=== PATIENT | male | born 1975 | race African-American/Black ===

== ENCOUNTER 2017-08-17 16:18 | Inpatient (IN) | payer SELFPAY ==
[2017-08-17 16:37] LABS: Bilirubin Moderate (Negative); Blood, Urine Small (Negative); Glucose, Urine (Dipstick) Negative (Negative); Ketone, Urine Trace mg/dL (Negative); Nitrite Positive (Negative); Protein, Urine (Dipstick) 100 mg/dL (Neg-Trace); Urobilinogen > or = 8.0 mg/dL (0.2-1.0)
[2017-08-17 16:38] LABS: Bacteria/HPF None Seen HPF (None Seen); Hyaline Casts/LPF 4-6 HYALINE CAST LPF (0-3 Hyaline); Squamous Epithelial 0-3 HPF (0-3)
[2017-08-17 16:47] LABS: Hematocrit 45.9 % (42.0-52.0); Mean Platelet Volume 7.8 fL (7.4-10.4); Red Blood Cell (RBC) Count 5.16 mill/uL (4.70-6.10); White Blood Cell (WBC) Count 14.5 thou/uL (4.8-10.8)
[2017-08-17] MEDS ORDERED: Ondansetron HCl/PF 4 MG/2 ML Vial ONE (17:00)
[2017-08-17] MEDS ORDERED: Azithromycin 500 MG VIAL ONE (17:00)
[2017-08-17 17:04] LABS: Band 2 % (5-11); Neutrophil 81 % (42-75)
[2017-08-17 17:08] LABS: Lactic Acid - Sepsis 2.7 mmol/L (0.5-2.2)
[2017-08-17] MEDS ORDERED: Acetaminophen 500 MG TAB ONE (17:11)
[2017-08-17] MEDS ORDERED: Ibuprofen 800 MG TAB ONE (17:11)
[2017-08-17 17:12] LABS: ALT (SGPT) 91 U/L (8-55); AST (SGOT) 57 U/L (5-34); Alkaline Phosphatase 148 U/L (40-150); Anion Gap 16 mmol/L (10-20); BUN (Urea Nitrogen) 8 mg/dL (8.9-20.6); Bilirubin, Total 1.3 mg/dL (0.2-1.2); Calc. Creatinine Clearance 0 mL/min (70-130); Carbon Dioxide 21 mmol/L (22-29); Chloride 97 mmol/L (98-107); Estimated GFR-MDRD 73; Globulin 4.2 g/dL (2.4-3.5); Protein, Total 8.4 g/dL (6.0-8.3)
--- NOTE | 2017-08-17 18:12 | RAD ---
PA AND LATERAL VIEWS CHEST: 08/17/17 HISTORY: Cough. FINDINGS: The heart size is normal. The lungs are expanded with patchy consolidation in the lingula. No pneumo thoraces or pleural effusions are seen. IMPRESSION: Left lung pneumonia. POS: [facility]
[2017-08-17] MEDS ORDERED: cefTRIAXone\\ROCEPHIN 1 GM VIAL ONE (18:31)
[2017-08-17] MEDS ORDERED: Sodium Chloride 0.9% 100 ML ONE (18:31)
[2017-08-17] MEDS ORDERED: Morphine Sulfate 2 MG/ML SYRINGE ONE (18:31)
[2017-08-17] MEDS ORDERED: HYDROcodone/Acetaminophen 5/325 mg Tablet PO PRN ×2 (23:05)
[2017-08-17] MEDS ORDERED: Acetaminophen 325 MG TAB PO PRN (23:05)
[2017-08-17] MEDS ORDERED: Ondansetron ODT 4 MG TAB SL PRN (23:05)
[2017-08-17] MEDS ORDERED: Ondansetron HCl/PF 4 MG/2 ML Vial IVP PRN (23:05)
[2017-08-17] MEDS ORDERED: Dextrose 5 %-0.45 % NaCl 1,000 ML IV SCH (23:15)
--- NOTE | 2017-08-17 23:23 | PDOC.EVN ---
Event Note - Event Note Event Note: [id number] h&p dictated 1. Sepsis 2. Pneumonia 3. UTI PLAN: SEE ORDERS
[2017-08-18 01:23] LABS: LegU Control Bar Appear? YES (CONTROL BAR); LegionellaU Control Bkground? CLEAR/WHITE (CLR/WHITE); Strp pneuU Control Background? CLEAR/WHITE (CLR/WHITE); Strp pneumo Control Bar Appear YES (CONTROL BAR)
[2017-08-18 05:31] LABS: #Eosinphils 0.2 thou/uL (0.0-0.7); #Lymphocytes 1.3 thou/uL (1.20-3.40); #Monocytes 1.5 thou/uL (0.11-0.59); #Neutrophils 8.7 thou/uL (1.40-6.50); %Basophils 0.3 % (0.0-1.0); %Eosinophils 1.5 % (0.0-10.0); %Lymphocytes 11.3 % (21.0-51.0); %Monocytes 12.7 % (0.0-10.0); Hematocrit 42.9 % (42.0-52.0); Mean Platelet Volume 8.1 fL (7.4-10.4); Red Blood Cell (RBC) Count 4.74 mill/uL (4.70-6.10); White Blood Cell (WBC) Count 11.8 thou/uL (4.8-10.8)
[2017-08-18 05:51] LABS: Anion Gap 7 mmol/L (10-20); BUN (Urea Nitrogen) 9 mg/dL (8.9-20.6); Calc. Creatinine Clearance 122 mL/min (70-130); Calcium 8.9 mg/dL (7.8-10.44); Carbon Dioxide 30 mmol/L (22-29); Chloride 102 mmol/L (98-107); Estimated GFR-MDRD Greater than 90
--- NOTE | 2017-08-18 06:32 | HP ---
DATE OF ADMISSION: 08/17/2017 CHIEF COMPLAINT: Cough, fever. HISTORY OF PRESENT ILLNESS: Patient is a 41-year-old man with no significant past medical history, now came to the ER complaining of cough, fever. The patient started having cough 2 days back with some sputum production, sputum white in color. Complains of also fever and chills, also fever up to 103. Patient started having diffuse body aches. Complains of some chest congestion also. Denies any nausea, denies any vomiting, denies any abdominal pain. Complains of diarrhea 1-2 times for the last 2 days. Denies any recent travel. Patient did get exposed to sick contacts. PAST MEDICAL HISTORY: None. PAST SURGICAL HISTORY: Appendectomy. SOCIAL HISTORY: Positive for smoking, denies alcohol, denies any drugs. FAMILY HISTORY: Positive for heart problems. REVIEW OF SYSTEMS: Constitutional: Positive for body aches. Eyes: Positive for fever and chills. Eyes: Denies any vision problems. Ears: Denies any hearing loss. Neck: Denies any neck pain. Cardiovascular: Denies any chest pain. Respiratory: Positive for dyspnea, cough, and sputum production. Gastrointestinal: Positive for diarrhea. Cranial nerve system: Denies syncope , denies dizziness. Psychiatric: Denies anxiety. Integumentary: Denies any rash. Musculoskeletal: Denies any joint deformities. All other review of systems are reviewed and are negative. PHYSICAL EXAMINATION: CONSTITUTIONAL/VITAL SIGNS: At the time of H\T\P performed, blood pressure is 100/40, pulse 78, respiratory rate 18, pulse ox 97% on room air. GENERAL: The patient appears comfortable. HEENT: Pupils equal, round, and reactive. Anterior nares patent. Nose normal. Ears normal. Teeth intact. Tongue is moist. NECK: Supple, no JVD. CARDIOVASCULAR SYSTEM: S1, S2 present. Regular rate and rhythm, no murmurs, no rubs, no gallops. RESPIRATORY SYSTEM: Left side, diminished breath sounds present. Positive for crackles. No rhonchi, no wheezing. No . GASTROINTESTINAL: Abdomen is soft, nontender, no guarding, no organomegaly, no masses felt. INTEGUMENT: No rashes seen. PSYCHIATRIC: Mood is appropriate at this time. LABORATORY DATA: At this time of H\T\P performed, sodium 131, potassium 3.2, chloride 97, CO2 of 21, BUN of 8, creatinine 1.31. AST 57, ALT 91, albumin 4.2. Lactic acid 2.7, repeat one is 0.7. White count of 14.5, hemoglobin 15.6 , platelet count is 239. Chest x-ray, possible left lingular infiltrate. ASSESSMENT AND PLAN: The patient is a 41-year-old man. 1. Sepsis secondary to pneumonia: will start broad spectrum antibiotics. Plan to admit the patient to telemetry floor. We will monitor patient closely. 2. Pneumonia. Start IV antibiotics. Plan to send urine for culture, strep pneumonia + legionella urinary antigen. Plan to check CT chest to evaluate the infiltrate. 3. Urinary tract infection. Plan to send urine for culture and sensitivity. Continue IV antibiotics. 4. Pain, p.r.n. pain medications. The case was discussed in detail with the patient. The patient is FULL CODE. MTDD
--- NOTE | 2017-08-18 08:05 | CT ---
PRELIMINARY REPORT/[facility]/EMERGENCY AFTER HOURS PROCEDURE: EXAM: CT Chest Without Intravenous Contrast CLINICAL HISTORY: 41 years old, male; Signs and symptoms; Other: R/O infiltrate TECHNIQUE: Axial computed tomography images of the chest without intravenous contrast. Coronal reformatted images were created and reviewed. COMPARISON: No relevant prior studies available. FINDINGS: Lungs: Left upper lobe consolidation with air bronchograms. Pleural space: No acute findings. No pneumothorax. No significant effusion. Heart: No acute findings. No cardiomegaly. No significant pericardial effusion. Bones/joints: No acute fracture. Soft tissues: No acute findings. Vasculature: No acute findings. No thoracic aortic aneurysm. Lymph nodes: Prominent mediastinal lymph nodes could be reactive. IMPRESSION: Left upper lobe consolidation may represent pneumonia; recommend clinical correlation and followup t o ensure resolution. Thank you for allowing us to participate in the care of your patient. Dictated and Authenticated by: Julien Meza MD 08/18/2017 12:36 AM Central Time ([place] \T\ [place]) FINAL REPORT EMERGENT AFTER HOURS CT THORAX WITHOUT IV CONTRAST: DATE: 08/18/17. HISTORY: Flu-like symptoms for several days. Cough. Symptoms worse today. IMPRESSION: 1. Consolidation in the left upper lobe likely attributable to pneumonia. Followup to complete res olution is recommended. 2. The right lung is clear. 3. Findings are in agreement with the preliminary report by [facility]. POS: [facility]
[2017-08-18] MEDS ORDERED: Heparin 5,000 UNITS/ML VIAL SC SCH (09:00)
[2017-08-18] MEDS: Acetaminophen 325 MG TAB PO PRN ×2 (09:57→21:57)
--- NOTE | 2017-08-18 10:20 | PDOC.PN ---
- Subjective Encounter Start Date: 08/18/17 Encounter Start Time: 07:20 Pt seen for followup re; sepsis. denies chest pain, shortness of breath, fevers or chills. No nausea or vomiting. Cough+, sputum+. - Objective MAR Reviewed: Yes Vital Signs & Weight: Vital Signs (12 hours) Temp Pulse Resp BP Pulse Ox 08/18/17 08:36 99.4 F 85 18 120/80 100 08/18/17 04:26 99.3 F 78 22 H 115/74 99 08/18/17 04:20 99 08/17/17 23:45 97.7 F 66 18 97 08/17/17 23:05 97.7 F 66 18 112/75 97 Weight Weight 196 lb 3.2 oz I&O: 08/17/17 08/18/17 08/19/17 06:59 06:59 06:59 Intake Total 966.1 Output Total 375 Balance 591.1 Result Diagrams: 08/18/17 04:25 08/18/17 04:25 Radiology Reviewed by me: Yes (CT chest: JESSICA consolidation) EKG Reviewed by me: Yes (Tele: NSR) Phys Exam - Physical Examination Constitutional: NAD HEENT: moist MMs, sclera anicteric Neck: supple, full ROM Respiratory: no wheezing, no rales, no rhonchi JESSICA bronchial breathing Cardiovascular: RRR, no significant murmur, no rub Gastrointestinal: soft, non-tender, no distention, positive bowel sounds Musculoskeletal: no edema, pulses present Neurological: non-focal, moves all 4 limbs Lymphatic: no nodes Psychiatric: normal affect, A&O x 3 Skin: no rash, normal turgor, cap refill <2 seconds Dx/Plan (1) Sepsis Code(s): A41.9 - SEPSIS, UNSPECIFIED ORGANISM Status: Acute (2) Pneumonia Code(s): J18.9 - PNEUMONIA, UNSPECIFIED ORGANISM Status: Acute (3) UTI (urinary tract infection) Status: Acute (4) Hypokalemia Code(s): E87.6 - HYPOKALEMIA Status: Acute - Plan continue antibiotics, out of bed/ambulate, DVT proph w/lovenox * . Continue IV ceftriaxone, IV levofloxacin. Await blood and urine cultures. Replace potassium. Transfer to medical floor. Review of Systems - Review of Systems Constitutional: Chills. negative: Fever, Sweats, Weakness, Malaise Respiratory: Cough, SOB with Excertion, Sputum. negative: Dry, Shortness of Breath, Hemoptysis, Pleuritic Pain, Wheezing Cardiovascular: negative: Chest Pain, Palpitations, Orthopnea, Paroxysmal Noc. Dyspnea, Edema, Light Headedness Gastrointestinal: negative: Nausea, Vomiting, Abdominal Pain, Diarrhea, Constipation, Melena, Hematochezia Genitourinary: negative: Dysuria, Frequency, Incontinence, Hematuria, Retention - Medications/Allergies Allergies/Adverse Reactions: Allergies Allergy/AdvReac Type Severity Reaction Status Date / Time No Known Drug Allergies Allergy Verified 08/17/17 23:24 Medications: Current Medications Acetaminophen (Tylenol) 650 mg PO Q6H PRN PRN Reason: Headache/Fever or Pain Last Admin: 08/18/17 09:57 Dose: 650 mg Heparin Sodium (Porcine) (Heparin) 5,000 units SC TID [place] Last Admin: 08/18/17 08:41 Dose: 5,000 units Levofloxacin 750 mg/ Device 150 mls @ 100 mls/hr IVPB Q24HR [place] Last Admin: 08/18/17 00:43 Dose: 150 mls Ceftriaxone Sodium 1 gm/ (Sodium Chloride) 100 mls @ 200 mls/hr IVPB Q24HR [place] Sodium Chloride (Flush - Normal Saline) 10 ml IVF Q12HR [place] Sodium Chloride (Flush - Normal Saline) 10 ml IVF PRN PRN PRN Reason: Saline Flush
[2017-08-18] MEDS ORDERED: Potassium Chloride 20 MEQ TAB PO SCH (10:30)
[2017-08-18 13:04] VITALS: BMI 29.0
[2017-08-19] MEDS: Enoxaparin Sodium 40 MG/0.4 ML SYRINGE SC SCH (08:56)
--- NOTE | 2017-08-19 12:34 | PDOC.PN ---
- Subjective Encounter Start Date: 08/19/17 Encounter Start Time: 07:00 Pt seen for followup re: pneumonia. says he feels better. Had low-grade fever last night. No nausea or vomiting. - Objective MAR Reviewed: Yes Vital Signs & Weight: Vital Signs (12 hours) Temp Pulse Resp BP Pulse Ox 08/19/17 11:50 98.9 F 72 16 122/88 97 08/19/17 08:00 98.9 F 67 16 100 08/19/17 07:45 98.9 F 67 16 115/80 100 08/19/17 03:20 98.1 F 60 16 106/76 100 Weight Admit Weight 197 lb 3.2 oz Weight 196 lb 3.2 oz I&O: 08/18/17 08/19/17 08/20/17 06:59 06:59 06:59 Intake Total 966.1 650 Output Total 375 Balance 591.1 650 Result Diagrams: 08/18/17 04:25 08/18/17 04:25 Phys Exam - Physical Examination Constitutional: NAD HEENT: moist MMs Neck: supple Respiratory: clear to auscultation bilateral Cardiovascular: RRR Gastrointestinal: soft Neurological: moves all 4 limbs Psychiatric: normal affect Dx/Plan (1) Pneumonia Code(s): J18.9 - PNEUMONIA, UNSPECIFIED ORGANISM Status: Acute (2) Hypokalemia Code(s): E87.6 - HYPOKALEMIA Status: Acute (3) Sepsis Code(s): A41.9 - SEPSIS, UNSPECIFIED ORGANISM Status: Resolved (4) UTI (urinary tract infection) Status: Ruled-out - Plan plan discussed w/ family, continue antibiotics, PT/OT, out of bed/ambulate, DVT proph w/lovenox * . Urine culture negative, discontinue ceftriaxone. Change levofloxacin to oral. Check potassium level. Likely discharge home 1-2 days. Review of Systems - Review of Systems Constitutional: Fever. negative: Chills, Sweats, Weakness Respiratory: Cough, Sputum. negative: Dry, Hemoptysis, Pleuritic Pain, Wheezing Cardiovascular: negative: Chest Pain, Palpitations, Orthopnea, Paroxysmal Noc. Dyspnea Gastrointestinal: negative: Nausea, Vomiting, Diarrhea - Medications/Allergies Allergies/Adverse Reactions: Allergies Allergy/AdvReac Type Severity Reaction Status Date / Time No Known Drug Allergies Allergy Verified 08/17/17 23:24 Medications: Current Medications Acetaminophen (Tylenol) 650 mg PO Q6H PRN PRN Reason: Headache/Fever or Pain Last Admin: 08/18/17 21:57 Dose: 650 mg Enoxaparin Sodium (Lovenox) 40 mg SC 0900 [facility] Last Admin: 08/19/17 08:56 Dose: 40 mg Levofloxacin (Levaquin) 750 mg PO 2000 [place] Sodium Chloride (Flush - Normal Saline) 10 ml IVF Q12HR [facility] Last Admin: 08/19/17 08:59 Dose: 10 ml Sodium Chloride (Flush - Normal Saline) 10 ml IVF PRN PRN PRN Reason: Saline Flush
[2017-08-19 14:09] LABS: #Basophils 0.1 thou/uL (0.0-0.2); #Eosinphils 0.2 thou/uL (0.0-0.7); #Lymphocytes 2.4 thou/uL (1.20-3.40); #Monocytes 0.7 thou/uL (0.11-0.59); #Neutrophils 3.9 thou/uL (1.40-6.50); %Basophils 1.5 % (0.0-1.0); %Eosinophils 3.1 % (0.0-10.0); %Lymphocytes 32.8 % (21.0-51.0); %Monocytes 9.6 % (0.0-10.0); Hematocrit 46.5 % (42.0-52.0); Mean Platelet Volume 7.7 fL (7.4-10.4); White Blood Cell (WBC) Count 7.3 thou/uL (4.8-10.8)
[2017-08-19 15:15] LABS: Calcium 10.2 mg/dL (7.8-10.44)
[2017-08-19 15:18] LABS: Anion Gap 14 mmol/L (10-20); BUN (Urea Nitrogen) 8 mg/dL (8.9-20.6); Calc. Creatinine Clearance 113 mL/min (70-130); Carbon Dioxide 28 mmol/L (22-29); Chloride 101 mmol/L (98-107); Estimated GFR-MDRD Greater than 90
[2017-08-19] MEDS ORDERED: cefTRIAXone\\ROCEPHIN 1 GM in Sodium Chloride 0.9% 100 ML IVPB SCH (18:00)
[2017-08-20 06:06] LABS: Anion Gap 13 mmol/L (10-20); BUN (Urea Nitrogen) 11 mg/dL (8.9-20.6); Calc. Creatinine Clearance 108 mL/min (70-130); Calcium 9.4 mg/dL (7.8-10.44); Carbon Dioxide 25 mmol/L (22-29); Chloride 105 mmol/L (98-107); Estimated GFR-MDRD 87
[2017-08-20 06:14] LABS: #Basophils 0.1 thou/uL (0.0-0.2); #Eosinphils 0.4 thou/uL (0.0-0.7); #Monocytes 0.6 thou/uL (0.11-0.59); #Neutrophils 3.5 thou/uL (1.40-6.50); %Eosinophils 5.4 % (0.0-10.0); %Lymphocytes 30.8 % (21.0-51.0); %Monocytes 8.9 % (0.0-10.0); Hematocrit 42.8 % (42.0-52.0); Mean Platelet Volume 7.6 fL (7.4-10.4); Red Blood Cell (RBC) Count 4.72 mill/uL (4.70-6.10); White Blood Cell (WBC) Count 6.5 thou/uL (4.8-10.8)
[2017-08-20 07:36] VITALS: BP 131/85; TEMP 98
[2017-08-20] MEDS: Enoxaparin Sodium 40 MG/0.4 ML SYRINGE SC SCH (08:49)
[2017-08-20] MEDS ORDERED: Cefdinir 300 MG CAP PO SCH (09:00)
--- NOTE | 2017-08-20 14:26 | DIS ---
DATE OF ADMISSION: 08/17/2017 DATE OF DISCHARGE: 08/20/2017 PRIMARY CARE PROVIDER: None. DISCHARGE DIAGNOSES: 1. Sepsis, resolved. 2. Pneumonia, clinically improved. 3. Urinary tract infection, ruled out. CONDITION OF PATIENT AT THE TIME OF DISCHARGE: Stable. I assessed Mr. Aguilera on the day of dischar ge. He denies any chest pain or shortness of breath. Cough is better. PHYSICAL EXAMINATION: VITAL SIGNS: Stable. HEART: S1 and S2 are heard, regular. LUNGS: Clear to auscultation bilaterally. DISCHARGE MEDICATIONS: Omnicef 300 mg 2 times a day for 10 days. HOSPITAL COURSE: Mr. Aguilera is a pleasant 41-year-old gentleman, who was admitted to [facility] on 08/17/2017 for sepsis secondary to pneumonia and suspected urinary tract infe ction. He was initially started on levofloxacin and ceftriaxone. Urine cultures were negative at 4 8 hours. Preliminary blood cultures are negative at 48 hours. Nasal swab did not show any evidence of influenza antigens. He continued to improve clinically. Leukocytosis resolved. He also had acute renal insufficiency a t the time of admission, which resolved by the time of discharge. He is being discharged home on Om nicef for 10 days. On the day of discharge, Mr. Aguilera has normal electrolytes, normal creatinine, normal white count, hemoglobin slightly decreased at 13.9 and normal platelet count. During this hospitalization, he hurtado d elevated lactate at the time of admission, which resolved. His urine Legionella pneumophila antig en and urine Streptococcus pneumoniae antigen tests were negative. DISCHARGE DESTINATION: Home. TOTAL AMOUNT OF TIME SPENT COORDINATING THIS DISCHARGE: 32 minutes.
== END 2017-08-20 11:59 | disposition home or self-care (01) | DRG 871 ==
LOC: ERS 16:18 → 2NO 22:57 → ONC 08-18 13:42
PROVIDERS: ADMIT Internal Medicine; ATTEND Internal Medicine
DX: A41.9 Sepsis, unspecified organism (principal); J18.9 Pneumonia, unspecified organism; E87.6 Hypokalemia; F17.210 Nicotine dependence, cigarettes, uncomplicated
CPT/HCPCS: 36415; 71020; 71250; 80048; 80053; 81003; 81015; 83605; 85025; 87040; 87086; 87899; A4216; J0456; J0696; J1644; J1650; J1956; J2270; J2405; J7050